=== PATIENT | female | born 1980 | race Two or more races ===

== ENCOUNTER 2017-01-23 17:15 | Emergency (ER) | payer BC ==
[2017-01-23] MEDS ORDERED: SULFACETAMIDE 10% OPHTH 1 DROP SOL ONE (18:04)
[2017-01-23 20:29] VITALS: BP 115/67; PULSE 73; RESP 18; TEMP 98.5; O2SAT 100
[2017-01-23] MEDS ORDERED: SULFACETAMIDE 10% OPHTH 1 DROP SOL OP SCH (21:00)
== END 2017-01-23 18:15 | disposition home or self-care (01) ==
LOC: ED 17:15
DX: H10.32 Unspecified acute conjunctivitis, left eye (principal)
CPT/HCPCS: 99282